=== PATIENT | female | born 1950 | race American Indian/Alaskan Native ===

== ENCOUNTER 2017-06-06 06:59 | Day surgery (SDC) | payer MEDICARE ==
[2017-06-06] MEDS ORDERED: SUBLIMAZE IV ONE ×2 (08:00→11:00)
[2017-06-06] MEDS ORDERED: VERSED IV NR (08:00)
[2017-06-06] MEDS ORDERED: NEURONTIN PO NR (08:00)
[2017-06-06] MEDS ORDERED: PEPCID PO NR (08:00)
[2017-06-06] MEDS ORDERED: NACL 0.9% 1000 ML 1,000 ML IV SCH (08:00)
--- NOTE | 2017-06-06 08:48 | Anesthesia Day of Surgery ---
Anesthesia Day of Surgery - Day of Surgery Patient Examined: Yes Patient H&P Reviewed: Yes Patient is NPO: Yes Beta Blockers: No (has not taken since yesterday AM, BP 135/74 HR 58)
--- NOTE | 2017-06-06 08:50 | Anesthesia Consultation ---
Anesthesia Consult and Med Hx Date of service: 06/06/17 - Airway Anesthetic Teeth Evaluation: Dentures (top) ROM Head & Neck: Adequate Mental/Hyoid Distance: Adequate Mallampati Class: Class I Intubation Access Assessment: Good - Pulmonary Exam CTA: Yes - Cardiac Exam Cardiac Exam: RRR - Pre-Operative Health Status ASA Pre-Surgery Classification: ASA3 Proposed Anesthetic Plan: General - Pulmonary Hx Smoking: No Hx Sleep Apnea: No (ERIK PRE SCREEN LOW RISK) - Cardiovascular System Hx Hypertension: Yes (2012) - Central Nervous System Hx Back Pain: Yes (last took tylenol on 06/03/17) Hx Psychiatric Problems: Yes (Anxiety) - Endocrine Hx Non-Insulin Dependent Diabetes: No - Other Systems Hx Cancer: Yes (left Breast) Hx Obesity: Yes
[2017-06-06] MEDS ORDERED: XYLOCAINE 1% 20 mL ONE (09:12)
[2017-06-06] MEDS ORDERED: VANCOMYCIN/NS 1 GM/250 ML 1 GM/250 ML BAG IV NR (10:30)
[2017-06-06] MEDS ORDERED: MARCAINE-EPI/PF 0.5%-1:200,000 INFILTRATI ONE (10:35)
[2017-06-06] MEDS ORDERED: DECADRON ONE (10:35)
[2017-06-06] MEDS ORDERED: NACL P/F VIAL (10 ML) 10 ML ONE (11:49)
[2017-06-06] MEDS ORDERED: METHYLENE BLUE ONE (11:50)
[2017-06-06] MEDS ORDERED: NACL P/F VIAL (10 ML) IV ONE (11:51)
[2017-06-06] MEDS ORDERED: METHYLENE BLUE IRRIGATION ONE (11:51)
--- NOTE | 2017-06-06 11:58 | Mammography Report ---
Left breast needle localization procedure. History: Left breast cancer with microcalcifications status post stereotactic biopsy. Procedure: The patient's skin surface was prepped and draped using sterile technique. Initial images to localize the microcalcifications were performed. Using mammographic guidance, 2 Joseph needles were advanced at the margins of the microcalcifications so as to bracket the calcifications. Satisfactory localization was accomplished and hook wires were left in place. The patient tolerated the procedure well clinically and was sent to the OR in satisfactory condition.
[2017-06-06] MEDS ORDERED: WATER FOR IRRIG STERILE IR ONE (12:14)
--- NOTE | 2017-06-06 13:47 | Short Stay Summary ---
Short Stay Documentation Date of service: 06/06/17 - History H&P: obtained from office - Allergies and Medications Current Medications: Allergies Penicillins Allergy (Verified 04/20/17 12:43) Swelling Home Medications Medication Instructions Recorded Confirmed Last Taken Type Atenolol/Chlorthalidone [Tenoretic 1 tab PO QDAY 04/20/17 06/06/17 06/05/17 08: 00 History 50-25] Acetaminophen [Tylenol Arthritis] 650 mg PO PRN PRN 04/24/17 06/06/17 06/03/17 History Cyanocobalamin (Vitamin B-12) 2,500 mcg PO DAILY 04/24/17 06/06/17 06/05/17 History [Vitamin B12] Multivit-Min/FA/Lycopen/Lutein 1 each PO DAILY 04/24/17 06/06/17 06/05/17 History [Centrum Silver Tablet] RX: Vitamin E 1,000 unit PO DAILY 04/24/17 06/06/17 06/05/17 History HYDROcodone/APAP 5-325 [[place] 1 each PO Q6HR PRN #30 tablet 06/06/17 Unknown Rx 5/325] Active Medications Sodium Chloride (Nacl 0.9% 1000 Ml) 1,000 mls @ 75 mls/hr IV DIRECT ELIUD Last Admin: 06/06/17 10:02 Dose: 75 mls/hr Midazolam HCl (Versed) 2 mg IV PREOP NR Stop: 06/06/17 23:59 Last Admin: 06/06/17 10:41 Dose: 2 mg - Brief post op/procedure progress note Date of procedure: 06/06/17 Pre-op diagnosis: Left breast cancer of the upper outer quadrant Post-op diagnosis: same Procedure: Left needle localization partial mastectomy and SLNB Anesthesia: GETA Findings: 3 SLNs; left breast radiograph specimen with clips and wire present Surgeon: KELECHI CLARK Monotype Setter: NEELIMA RAMIREZ Estimated blood loss: minimal Pathology: list (left partial mastectomy and SLNB) Specimen disposition: to lab Condition: stable - Disposition Condition at discharge: Good Disposition: DC- TO HOME OR SELFCARE Short Stay Discharge Plan Activity: other (no heavy lifting) Diet: regular Wound: other (keep incision clean and dry and may shower in 24 hours; no baths, pools or lakes; do not rub or scrub incision) Follow up with: DR MANUEL [Other] - 7 Days KELECHI CLARK MD [Staff Physician] - 7 Days Prescriptions: HYDROcodone/APAP 5-325 [[place] 5/325] 1 each PO Q6HR PRN #30 tablet PRN Reason: Pain
--- NOTE | 2017-06-06 14:04 | Operative Report ---
Operative Report Operative Report: Date of Service: June 06, 2017 Preoperative diagnosis: Left breast cancer of the upper outer quadrant Post operative diagnosis: Same Procedure: Complex left needle localization partial mastectomy and sentinel lymph node biopsy Surgeon: Heidi Guevara M.D. Leach Cell Operator: Dr. Ordonez Anesthesia: Gen. Findings: 3 SLNS; radiograph specimen with clip and wires present Estimated blood loss: Minimal Complications: None Disposition: PACU in good condition Indications for operative procedure: This is a 67-year-old lady with newly diagnosed left breast cancer of the upper outer quadrant, Stage 0. Recommendations were to proceed with a left needle localization partial mastectomy with sentinel lymph node biopsy. Indications for sentinel lymph node biopsy was calcification span of 4 cm. Procedure in detail: Radiology placed 2 wires to bracket the area of known breast cancer. Patient had left pectoral muscle block placed by anesthesia. The patient was then taken to the operating room and was laid supine. Gen. anesthesia was administered. The wires were identified. The left nipple was injected with radioisotope and 1 mL of methylene blue dye with saline given initially no uptake noted on gamma probe. The left breast and axilla were prepped and draped in the normal sterile operative fashion. The area of incision of the breast was marked. Gamma probe was inserted into the axillay for identification of sentinel lymph node. A skin incision was made with 15 blade knife through the skin of the axilla and taken down to the subcutaneous tissues. Axillary fascia was opened with Bovie cautery. The gamma probe was inserted into the axilla and 3 sentinel lymph nodes were identified and dissected free. All remaining counts less were less than 10% of the highest count. Hemostasis was noted. Axillary fascia was approximated and closed using interrupted 3-0 Vicryl and skin was brought together and closed using a running 4-0 Monocryl followed by skin affix. Attention was then taken towards the left breast. A medial upper outer breast incision was made in between both wires that were place. Skin incision was made with 15 blade knife and dissection taken down to the subcutanouis tissues. First began with removal of the wires superiorly and inferiorly. Then proceeded with raising of the superior flap taken down posteriorly to the pectoralis muscle, followed by raising of the medial flap taken down posteriorly to the pectoralis muscle, followed by raising of the inferior flap taken down posteriorly and raising of the medial flap and taken down posteriorly to the pectoralis muscle. The wires were not encountered. The breast specimen was removed from the pectoralis muscle without incident. The specimen was appropriately marked and sent to radiology with both wires and clip present as well as calcifications present. Specimens were then sent to pathology. Then proceeded with oncoplastic surgery to close the area of defect of 7 cm. Posterior breast tissue was mobilized and then approximated and closed using interrupted 3-0 Vicryl followed by closing of the subcutaneous tissues using iinterrupted 3-0 Vicryl and the skin was closed using a 4-0 Monocryl followed by skin affix. She tolerated surgery very well and was awakened from anesthesia without complications and transported to PACU in good condition.
[2017-06-06] MEDS ORDERED: DILAUDID IV PRN (14:21)
[2017-06-06] MEDS ORDERED: ZOFRAN IV PRN (15:00)
--- NOTE | 2017-06-06 15:08 | Mammography Report ---
Specimen ray graft. Findings: A single specimen radiograph confirms the presence of numerous pleomorphic microcalcifications located between the 2 hook wires. A single biopsy clip is noted.
[2017-06-06 18:02] VITALS: BP 137/64
== END 2017-06-06 16:20 | disposition home or self-care (01) ==
LOC: OR 06:59
PROVIDERS: ATTEND Surgery
DX: C50.412 Malignant neoplasm of upper-outer quadrant of left female breast (principal); I10 Essential (primary) hypertension; E66.9 Obesity, unspecified; F41.9 Anxiety disorder, unspecified; Z88.0 Allergy status to penicillin
CPT/HCPCS: 19281; 19282; 19301; 38525; 38792; 64450; 76098; 78800; 88307; 88341; 88342; A9541; J1100; J2250; J3010; J3370; J7030; Q9968; 88333

== ENCOUNTER 2017-06-20 05:45 | Day surgery (SDC) | payer MEDICARE ==
[2017-06-20] MEDS ORDERED: NACL 0.9% 1000 ML 1,000 ML IV SCH (06:00)
[2017-06-20] MEDS ORDERED: PEPCID PO NR (06:00)
--- NOTE | 2017-06-20 07:18 | Anesthesia Day of Surgery ---
Anesthesia Day of Surgery - Day of Surgery Patient Examined: Yes Patient H&P Reviewed: Yes Patient is NPO: Yes Beta Blockers: Yes
--- NOTE | 2017-06-20 07:18 | Anesthesia Consultation ---
Anesthesia Consult and Med Hx Date of service: 06/20/17 - Airway Anesthetic Teeth Evaluation: Good ROM Head & Neck: Adequate Mental/Hyoid Distance: Adequate Mallampati Class: Class II Intubation Access Assessment: Probably Good - Pulmonary Exam CTA: Yes - Cardiac Exam Cardiac Exam: RRR - Pre-Operative Health Status ASA Pre-Surgery Classification: ASA2 Proposed Anesthetic Plan: General - Pulmonary Hx Smoking: No Hx Sleep Apnea: No (ERIK PRE SCREEN LOW RISK) - Cardiovascular System Hx Hypertension: Yes (2012) - Central Nervous System Hx Back Pain: Yes (last took tylenol on 06/03/17) Hx Psychiatric Problems: Yes (Anxiety) - Endocrine Hx Non-Insulin Dependent Diabetes: No - Other Systems Hx Alcohol Use: No Hx Substance Use: No Hx Cancer: Yes Hx Obesity: Yes
[2017-06-20] MEDS ORDERED: DIPRIVAN 10 MG/ML IV ONE (07:33)
[2017-06-20] MEDS ORDERED: DILAUDID ONE (07:34)
[2017-06-20] MEDS ORDERED: XYLOCAINE 1% 20 mL ONE (07:39)
[2017-06-20] MEDS ORDERED: MARCAINE 0.25% INFILTRATI ONE ×2 (07:40→08:29)
[2017-06-20] MEDS ORDERED: VERSED IV NR (08:00)
[2017-06-20] MEDS ORDERED: VANCOMYCIN/NS 1 GM/250 ML 1 GM/250 ML BAG IV NR (08:00)
[2017-06-20] MEDS ORDERED: DILAUDID IV PRN (08:21)
[2017-06-20] MEDS ORDERED: XYLOCAINE 1% 20 mL INFILTRATI ONE (08:29)
[2017-06-20] MEDS ORDERED: DECADRON ONE (08:32)
[2017-06-20] MEDS ORDERED: XYLOCAINE MPF 2% ONE (08:33)
[2017-06-20] MEDS ORDERED: PERCOCET 5/325 PO PRN (09:00)
[2017-06-20] MEDS ORDERED: WATER FOR IRRIG STERILE IR ONE (09:17)
[2017-06-20] MEDS ORDERED: ZOFRAN ONE (09:26)
[2017-06-20] MEDS ORDERED: TORADOL ONE (09:26)
--- NOTE | 2017-06-20 09:34 | Short Stay Summary ---
Short Stay Documentation Date of service: 06/20/17 - History H&P: obtained from office - Allergies and Medications Current Medications: Allergies Penicillins Allergy (Verified 04/20/17 12:43) Swelling Home Medications Medication Instructions Recorded Confirmed Last Taken Type Atenolol/Chlorthalidone [Tenoretic 1 tab PO QDAY 04/20/17 06/20/17 06/20/17 07: 00 History 50-25] Acetaminophen [Tylenol Arthritis] 650 mg PO PRN PRN 04/24/17 06/19/17 06/03/17 History Cyanocobalamin (Vitamin B-12) 2,500 mcg PO DAILY 04/24/17 06/20/17 06/19/17 09: 00 History [Vitamin B12] Multivit-Min/FA/Lycopen/Lutein 1 each PO DAILY 04/24/17 06/20/17 06/19/17 09:00 History [Centrum Silver Tablet] Vitamin E 1,000 unit PO DAILY 04/24/17 06/20/17 06/19/17 09:00 History HYDROcodone/APAP 5-325 [[place] 1 each PO Q6HR PRN #30 tablet 06/06/17 06/19/17 Unknown Rx 5/325] HYDROcodone/APAP 5-325 [[place] 1 each PO Q6HR PRN #30 tablet 06/20/17 Unknown Rx 5/325] Active Medications Famotidine (Pepcid) 20 mg PO PREOP NR Stop: 06/20/17 23:59 Last Admin: 06/20/17 06:40 Dose: 20 mg Hydromorphone HCl (Dilaudid) 0.5 mg IV Q10MIN PRN PRN Reason: Pain , Severe (7-10) Stop: 06/20/17 15:00 Sodium Chloride (Nacl 0.9% 1000 Ml) 1,000 mls @ 75 mls/hr IV DIRECT ELIUD Last Admin: 06/20/17 06:40 Dose: 75 mls/hr Vancomycin HCl (Vancomycin/Ns 1 Gm/250 Ml) 1 gm in 250 mls @ 167.007 mls/hr IV PREOP NR PRN Reason: Protocol Stop: 06/20/17 12:00 Last Admin: 06/20/17 07:59 Dose: 167.007 mls/hr Midazolam HCl (Versed) 2 mg IV PREOP NR Stop: 06/20/17 23:59 Last Admin: 06/20/17 07:42 Dose: 2 mg - Brief post op/procedure progress note Date of procedure: 06/20/17 Pre-op diagnosis: Left breast cancer with positive margins Post-op diagnosis: same Procedure: Left breast margin revision Anesthesia: GETA Findings: Left breast partial mastectomy margin revision of the inferior, lateral and posterior margin Surgeon: KELECHI CLARK Estimated blood loss: minimal Pathology: list (left breast margin revision) Specimen disposition: to lab Condition: stable - Disposition Condition at discharge: Good Disposition: DC-01 TO HOME OR SELFCARE Short Stay Discharge Plan Activity: other (no heavy lifting) Diet: regular Wound: other (keep incision clean and dry and may shower in 24 hours) Follow up with: PRIMARY CAREMD [Primary Care Provider] - 7 Days KELECHI CLARK MD [Staff Physician] - 7 Days Prescriptions: HYDROcodone/APAP 5-325 [[place] 5/325] 1 each PO Q6HR PRN #30 tablet PRN Reason: Pain
--- NOTE | 2017-06-20 09:54 | Operative Report ---
Operative Report Operative Report: Date of Service: June 20, 2017 Preoperative diagnosis: Left breast cancer of the upper outer quadrant with positive surgical margins Postoperativediagnosis: Same Procedure: Left breast margin revision Surgeon: Heidi Guevara MD Sheetfed Press Operator: Mrs. Cruz Anesthesia: General Findings: Left breast partial mastectomy with revised lateral, inferior and posterior margins Complications: None Drains: None Disposition: PACU in good condition Indications for operative procedure: This is a 67 year old lady with a personal history of left breast cancer of the upper outer quadrant, Stage 0 DCIS. She recently underwent left partial mastectomy with SLNB and positive partial mastectomy margin of the inferior and close margin of the lateral and posterior margins. Recommendations were to proceed with margin revision of the above margins. Procedure in detail: The patient was taken to the operating room and was laid supine. General anesthesia was administered. Left breast was prepped and draped in normal sterile operative fashion. A skin incision was made through prior incision. Seroma was encountered and drained. Left breast inferior margin was grasped and revised. Additional lateral and posterior margins were revised as well in similar like fashion. Revised margins sent to patholgoy and marked. The breast cavity was irrigated and suctioned. Hemostasis was obtained with the bovie cautery. The posterior breast tissue was approximated and close using 3-0 Vicryl. The subcutaneous tissues were approximated and closed using 3-0 Vicryl and skin closed using running 4-0 Moncryl. She tolerated surgery very well and was awaken from anesthesia without any complications and transported to PACU in good condition.
[2017-06-20 13:01] VITALS: BP 141/75
== END 2017-06-20 11:16 | disposition home or self-care (01) ==
LOC: OR 05:45
PROVIDERS: ATTEND Surgery
DX: D05.12 Intraductal carcinoma in situ of left breast (principal); I10 Essential (primary) hypertension; F41.9 Anxiety disorder, unspecified; Z87.898 Personal history of other specified conditions; Z98.890 Other specified postprocedural states; Z88.0 Allergy status to penicillin; Z68.34 Body mass index [BMI] 34.0-34.9, adult
CPT/HCPCS: 19301; 36415; 84132; 88307; J1100; J1170; J1885; J2250; J2405; J2704; J3370; J7030

== ENCOUNTER 2017-09-05 09:54 | Outpatient (CLI) | payer MEDICARE ==
--- NOTE | 2017-09-05 11:15 | Mammography Report ---
BONE DENSITY STUDY: DEFINITIONS: BMD = Bone Mineral Density T-score = BMD related to mean peak bone mass of young adult (mean expressed in Standard Deviation) Z-score = Age matched BMD expressed in SD World Health Organization (WHO) Diagnostic Criteria Normal T-score > -1 SD Osteopenia T-score between -1 and -2.4 SD Osteoporosis T-score -2.5 SD or below FINDINGS: The weighted average BMD of lumbar spine L1-L4 is 0.926 with a T-score of -2.0. The weighted average BMD of hip is 0.912 with a T-score of -0.8. IMPRESSION: The patient's T-score is diagnostic for osteopenia and average relative risk for fracture. NOTE: BMD is not the only risk factor for fracture; also consider factors such as the patient's age, risk of falling, previous osteoporotic fracture, family history of osteoporotic fractures, current smoker, and low body weight. Kang's triangle is a region of interest in femur, predominantly of trabecular bone. It is not a true anatomic site, and [facility] does not recommend its use clinically.
== END 2017-09-05 09:55 | disposition home or self-care (01) ==
LOC: SPVWC 09:54
PROVIDERS: ATTEND Internal Medicine Hematology & Oncology
DX: M85.88 Other specified disorders of bone density and structure, other site (principal); D05.12 Intraductal carcinoma in situ of left breast; I10 Essential (primary) hypertension; Z79.811 Long term (current) use of aromatase inhibitors
CPT/HCPCS: 77080